=== PATIENT | male | born 1985 | race Caucasian/White ===

== ENCOUNTER 2020-07-02 17:03 | Emergency (ER) | payer OTHER, SELFPAY ==
[2020-07-02 17:38] VITALS: BP 144/105; PULSE 101; RESP 14; TEMP 36.8; O2SAT 97; BMI 34.4
--- NOTE | 2020-07-02 18:07 | W.ED.WOUNDLC ---
HPI - Wound/Laceration General: Chief Complaint: Wound/Laceration Stated Complaint: Lt hand lac Time Seen by Provider: 07/02/20 18:02 Source: patient and family (spouse) Mode of arrival: ambulatory Limitations: no limitations History of Present Illness: HPI narrative: 35-year-old male patient presents to the emergency department with left hand pain. He reports was loading metal steel beams while taking down a barn. Reports beam slipped crushing his third and fourth finger of the left hand. He also sustained lacerations. Onset (ago): minute(s) (30) Extremity Location: Left: hand Place: home Patient tetanus UTD: No Context: accidental Associated symptoms: Reports no associated symptoms; Denies chills, fever(s), nausea or vomiting Treatments prior to arrival: bandage Review of Systems General: Reports: 10 or more systems reviewed and unremarkable except in HPI and below Const: Denies: fever(s), chills or diaphoresis Eyes: Denies: blurry vision or eye redness ENMT: Denies: throat pain, dental pain or disequilibrium Card: Denies: chest pain, palpitations or irregular heart rhythm Resp: Denies: dyspnea, productive cough, non-productive cough or wheezing GI: Denies: abdominal pain, nausea or vomiting : Denies: dysuria Musc: Reports: joint pain and joint swelling; Denies: neck pain or back pain Skin/Breast: Reports: skin tenderness; Denies: rash or pruritus Neuro: Denies: headache(s), weakness in extremities or behavioral changes Psych: Denies: anxiety or depression Jay/Lymph: Denies: easy bruising Physical Exam Const: COMMON NORMALS: no acute distress, patient oriented x3, healthy appearing and alert GENERAL APPEARANCE: cooperative, well kempt, well developed and well hydrated; not comfortable NUTRITIONAL APPEARANCE: overweight ORIENTATION/CONSCIOUSNESS: Yes awake, Yes oriented to person, Yes oriented to place and Yes oriented to time HENMT: COMMON NORMALS: normocephalic, atraumatic, Normal external nose present and moist oral mucous membranes HEAD & SCALP: normal to inspection, normocephalic and atraumatic NOSE: Normal external nose present Eye: COMMON NORMALS: Equal, round and reactive pupils present and EOMs intact bilaterally GENERAL EYE: appearance normal, both eyes and all related structures PUPIL: Yes Equal, round and reactive pupils present Neck/C-Spine: COMMON NORMALS: full ROM and no lymphadenopathy GENERAL: Yes normal visual inspection and Yes trachea midline CERVICAL SPINE: Yes cervical ROM normal Lymph: LYMPHATIC: no lymphadenopathy noted Chest: COMMONS NORMALS: normal inspection of the chest Resp: COMMON NORMALS: normal respiratory effort and clear to auscultation bilaterally AUSCULTATION: clear to auscultation bilaterally Cardio: COMMON NORMALS: regular rhythm, S1 normal heart sound present, S2 normal heart sound present and Peripheral pulses 2+ throughout RHYTHM: regular rhythm HEART SOUNDS: S1 normal heart sound present and S2 normal heart sound present PERIPHERAL PULSES: Peripheral pulses 2+ throughout GI: COMMON NORMALS: Soft to palpation and non-tender INSPECTION: Yes normal to inspection PALPATION: Yes Soft to palpation : COMMON NORMALS: Yes no CVA tenderness BLADDER/KIDNEY EXAM: Yes no CVA tenderness Back/Pelvis: COMMON NORMALS: no CVA tenderness and thoracic and lumbar spine normal to inspection Extremity: COMMON NORMALS: normal to inspection, full ROM, capillary refill normal and no pedal edema GENERAL: Yes normal exam except as noted LEFT UPPER EXTREMITY: Yes hand & digits Left hand and digits: Yes inspection (edema), Yes palpation (pain to the left 3rd and 4th digit), Yes ROM (intact), Yes neurovascular exam (intact) and Yes tendon exam (intact) Neuro: COMMON NORMALS: patient oriented x3 and no focal motor deficits SENSORIUM/ORIENTATION: Yes alert, Yes oriented to person, Yes oriented to place and Yes oriented to time Psych: COMMON NORMALS: mental status grossly normal, Normal thought process present and cooperative APPEARANCE: Yes well kempt ACTIVITY/MOTOR BEHAVIOR: Yes appropriate eye contact THOUGHT PROCESS: Normal thought process present Skin: COMMON NORMALS: no rashes or lesions noted and turgor normal GENERAL SKIN EXAM: no rashes or lesions noted, elasticity normal and turgor normal TRAUMA: abrasion (4th digit, 2nd PIP with 1 cm superficial abrasion, volar side) and laceration (3rd dorsal, 2nd PIP, volar side with 2 cm laceration) linear, actively bleeding, involves subcutaneous tissue, involves muscle tissue, motor nerve function intact and sensation intact Procedures Laceration Laceration 1: Site: other (3rd left digit/hand) Side (If applicable): left Size (cm): 2 Description: linear Depth: simple, single layer Pre-repair: wound explored, irrigated extensively, deep structures intact and extensive debridement Skin layer closed with: other (Prolene) Size (cm): 5-0 Number of sutures: 2 Technique: simple, interrupted Nerve Block Nerve Block 1: Time out performed: Yes Local Anesthetic: lidocaine 1% Amount of anesthesia used (mL): 7 Side: left Nerve Blocks: digital (3rd digit, volar and dorsal) Procedure Successful: Yes Patient Tolerated Procedure: well Complications: none Nerve Block 2: Time out performed: Yes Local Anesthetic: lidocaine 1% Amount of anesthesia used (mL): 7 Nerve Blocks: digital (4th digit, dorsal and volar) Procedure Successful: Yes Patient Tolerated Procedure: well Complications: none Course Vital Signs: Vital signs: Vital Signs Temperature 98.3 F 07/02/20 19:25 Pulse Rate 86 07/02/20 19:25 Respiratory Rate 16 07/02/20 19:25 Blood Pressure 132/78 07/02/20 19:25 Pulse Oximetry 97 07/02/20 19:25 MDM - Wound/Laceration Imaging Data^: Xray Ortho: Radiologist's impression: [address] [address] XRay Report Signed Patient: Kailash Metz Unit #: [id number] : [id number] Age/Sex: 35 / M ADM Date: 07/02/20 Loc: ER Room/Bed: Attending Dr: Ordering Provider/Ordering MD: Dilma Salgado Date of Service: 07/02/20 Procedure(s): XR hand LT min 3V* [id number] Accession Number(s): [id number] Report Number: [id number] PROCEDURE INFORMATION: Exam: XR Left Hand Exam date and time: 07/02/2020 6:08 PM Age: 35 years old Clinical indication: Injury or trauma; Other: Crushing injury; Blunt trauma (contusions or hematomas) and crushing; Hand; Left; Additional info: Crush injury/laceration TECHNIQUE: Imaging protocol: XR Left hand. Views: 3 or more views. Total images: 3 COMPARISON: No relevant prior studies available. FINDINGS: Bones/joints: No visible acute osseous abnormality, fracture, subluxation, or dislocation. No radiographically visible joint effusion. Soft tissues: Soft tissues without evidence of edema, swelling, contusion, emphysema, or radiopaque foreign body. XR/XR hand LT min 3V* [id number] IMPRESSION: Nonacute. Dictated By: Bert Griffith Signed By: Bert Griffith Signed Date/Time: 07/02/201857 DD/ 56 Discharge Plan Discharge Patient Disposition: Home Clinical Impression: Laceration Crush injury to finger Qualifiers: Encounter type: initial encounter Qualified Code(s): S67.10XA - Crushing injury of unspecified finger(s), initial encounter Finger fracture, left Qualifiers: Encounter type: initial encounter Finger: middle finger Fracture type: open Phalanx: middle Fracture alignment: nondisplaced Qualified Code(s): S62.653B - Nondisplaced fracture of middle phalanx of left middle finger, initial encounter for open fracture Condition: Stable Prescriptions: New hydrocodone-acetaminophen 5-325 mg tablet 1 tab PO Q4H PRN (Reason: pain) Qty: 10 RF: 0 Augmentin 875-125 mg tablet 1 tab PO BID Qty: 14 RF: 0 Discharge Orders: Discharge ED (Routine); Ordered 07/02/20 Ordered By: Dilma Salgado Discharge Diet: Usual diet Discharge Activity: Limit activity as instructed Patient Instructions: Crush Injury, Diphtheria/Acellular Pertussis/Tetanus Booster Vaccine (Tdap) (Injection), Fractures - Phalanx (Finger), Suture Care (ED), Laceration (ED) Activity Restrictions/Additional Instructions: 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
[2020-07-02] MEDS: amoxicillin-clav 875-125 mg Tablet 1 TAB PO (19:08)
[2020-07-02] MEDS: HYDROcodone-acetaminophen 5-325 mg Tablet 1 TAB PO ×2 (19:08→19:09)
[2020-07-02] MEDS: tetanus-dipt-pertussis 0.5 mL SDV IM (19:09)
[2020-07-02 19:25] VITALS: BP 132/78; PULSE 86; RESP 16; TEMP 36.8; O2SAT 97
== END 2020-07-02 19:25 | disposition home or self-care (01) ==
PROVIDERS: Emergency Provider Nurse Practitioner Family
DX: S62.653B Nondisplaced fracture of middle phalanx of left middle finger, initial encounter for open fracture (principal); S67.10XA Crushing injury of unspecified finger(s), initial encounter; S61.213A Laceration without foreign body of left middle finger without damage to nail, initial encounter; W23.0XXA Caught, crushed, jammed, or pinched between moving objects, initial encounter; Z23 Encounter for immunization
CPT/HCPCS: 12002; 12345; 73130; 90471; 90715; 99281; 99283

== ENCOUNTER 2020-12-23 20:49 | Emergency (ER) | payer OTHER, SELFPAY ==
[2020-12-23 21:06] VITALS: BP 122/97; PULSE 91; RESP 16; TEMP 36.6; O2SAT 97; BMI 32.5
--- NOTE | 2020-12-23 21:26 | XRR_ITS ---
PROCEDURE INFORMATION: Exam: XR Chest Exam date and time: 12/23/2020 9:26 PM Age: 35 years old Clinical indication: Dyspnea; Additional info: Reduced breath sounds. Covid SX TECHNIQUE: Imaging protocol: XR of the chest. Views: 1 view. COMPARISON: No relevant prior studies available. FINDINGS: Lungs: Unremarkable. No consolidation. Pleural spaces: Unremarkable. No pleural effusion. No pneumothorax. Heart/Mediastinum: Unremarkable. No cardiomegaly. Bones/joints: Unremarkable. XR/XR chest 1V portable [id number] IMPRESSION: No acute findings.
[2020-12-23] MEDS: ondansetron 2 mg/ML SDV 2 mL 4 MG IVP (21:40)
[2020-12-23] MEDS: acetaminophen 325 mg Tablet 650 MG PO (21:41)
--- NOTE | 2020-12-23 21:56 | W.ED.COVID ---
HPI - COVID General: Chief Complaint: COVID symptoms Stated Complaint: very ill Time Seen by Provider: 12/23/20 21:20 Triage information: No fever, cough or shortness of breath. Exposure to COVID + person last 14 days History of Present Illness: HPI Narrative: The patient is a 35-year-old male who comes to the ER complaining that he is intoxicated and was nauseous and vomiting and feeling unsteady on his feet. He says he was exposed to Covid a few days ago as well. He states he has mild confusion but thinks he is just very drunk. He came from the [employer] and has been drinking heavily. Denies fever. He says occasionally has chest pain he is worried about COVID 19 common symptoms: positive nausea and vomiting; negative productive cough, dyspnea, fatigue, headache(s), throat pain or nasal congestion COVID 19 other sytmptoms: negative chest pain or confusion Treatment prior to arrival: none COVID Results: SARS-CoV-2 Antigen (Rapid) Negative (Negative) 12/23/20 23:00 12/23/20 Review of Systems General: Reports: 10 or more systems reviewed and unremarkable except in HPI and below Const: Denies: fatigue Eyes: Denies: change in vision, blurry vision or eye redness ENMT: Denies: throat pain, swelling of lips/tongue, ear or mastoid pain or nasal congestion Card: Denies: chest pain, palpitations, irregular heart rhythm, edema, dyspnea on exertion or orthopnea Resp: Denies: dyspnea or productive cough GI: Reports: nausea and vomiting : Denies: flank pain, urinary frequency or urinary urgency Musc: Denies: neck pain, back pain, extremity pain, joint pain, joint redness, limited range of motion or muscle weakness Skin/Breast: Denies: rash, pruritus, erythema, skin pain or skin tenderness Neuro: Denies: headache(s), numbness in extremities, weakness in extremities, sensory changes, difficulty walking, dizziness, confusion or Slurred speech present Psych: Denies: anxiety or depression Endo: Denies: polyuria All/Imm: Denies: urticaria, throat swelling or tongue swelling Physical Exam Narrative: EXAM NARRATIVE: Intoxicated. Smells of alcohol. Const: COMMON NORMALS: no acute distress, average body habitus, patient oriented x3, no limitations, healthy appearing, alert and well nourished GENERAL APPEARANCE: cooperative, comfortable, well kempt and well developed ORIENTATION/CONSCIOUSNESS: Yes awake, Yes oriented to person, Yes oriented to place and Yes oriented to time HENMT: COMMON NORMALS: normocephalic, external ears normal and Normal external nose present HEAD & SCALP: normal to inspection and normocephalic NOSE: Normal external nose present EXTERNAL EAR: Yes external ears normal MOUTH: Normal oral and palatal mucosa present THROAT: posterior oropharynx normal Eye: COMMON NORMALS: Equal, round and reactive pupils present and EOMs intact bilaterally GENERAL EYE: appearance normal, both eyes and all related structures PUPIL: Yes Equal, round and reactive pupils present Neck/C-Spine: COMMON NORMALS: full ROM, no lymphadenopathy, no meningeal signs and no JVD GENERAL: Yes normal visual inspection Lymph: LYMPHATIC: no lymphadenopathy noted Chest: COMMONS NORMALS: normal inspection of the chest and normal palpation of entire chest wall Resp: COMMON NORMALS: normal respiratory effort, No retractions, No use of accessory muscles, clear to auscultation bilaterally and percussion normal EFFORT & INSPECTION: Yes able to speak in complete sentences AUSCULTATION: clear to auscultation bilaterally PERCUSSION: percussion normal Cardio: COMMON NORMALS: no JVD, regular rate, regular rhythm, S1 normal heart sound present, S2 normal heart sound present and Peripheral pulses 2+ throughout RATE: regular rate RHYTHM: regular rhythm HEART SOUNDS: S1 normal heart sound present and S2 normal heart sound present PERIPHERAL PULSES: Peripheral pulses 2+ throughout GI: COMMON NORMALS: Normal to inspection, nondistended, normoactive bowel sounds present, Soft to palpation, non-tender and no masses INSPECTION: Yes normal to inspection PALPATION: Yes Soft to palpation : COMMON NORMALS: Yes no CVA tenderness BLADDER/KIDNEY EXAM: Yes no CVA tenderness Back/Pelvis: COMMON NORMALS: no CVA tenderness, thoracic and lumbar spine normal to inspection, no thoracic nor lumbar tenderness and thoraco-lumbar ROM normal Extremity: COMMON NORMALS: normal to inspection, full ROM, capillary refill normal, no joint enlargement and no pedal edema GENERAL: Yes normal exam except as noted Neuro: COMMON NORMALS: patient oriented x3, CN's II-XII intact bilaterally, moves all extremities, no focal motor deficits, no sensory deficits noted and gait normal SENSORIUM/ORIENTATION: Yes alert, Yes oriented to person, Yes oriented to place and Yes oriented to time MENINGEAL SIGNS: Yes no meningeal signs Psych: COMMON NORMALS: mental status grossly normal, Normal thought process present, cooperative, normal affect and speech normal APPEARANCE: Yes well kempt ATTITUDE: Yes calm SPEECH: Yes normal speech THOUGHT PROCESS: Normal thought process present Skin: COMMON NORMALS: no rashes or lesions noted GENERAL SKIN EXAM: no rashes or lesions noted Course Vital Signs: Vital signs: Vital Signs Temperature 97.8 F 12/23/20 21:06 Pulse Rate 91 12/23/20 21:06 Respiratory Rate 16 12/23/20 21:06 Blood Pressure 122/97 12/23/20 21:06 Pulse Oximetry 97 12/23/20 21:06 MDM - COVID MDM Narrative: Medical decision making narrative: Patient comes to the ER with multiple complaints nausea, lack of coordination and balance. Likely attributable to his alcohol intoxication. EtOH level 181 with mild bump in liver enzymes. Covid test negative. EKG normal and troponin normal. Stable for discharge. Discussed cutting back on alcohol with him. ER with worsening symptoms at any time. PCP next week for recheck Lab Data: Labs: Lab Results 12/23/20 12/23/20 12/23/20 Range/Units 22:00 22:00 22:00 WBC 7.2 (4.0-10.0) 10^3/ uL RBC 5.08 (4.1-5.3) 10^6/u L Hgb 16.3 (11.7-16.6) g/dL Hct 48.7 (42.0-52.0) % MCV 95.9 H (80-94) fL MCH 32.1 (28.0-34.0) pg MCHC 33.5 (30.0-36.0) g/dL RDW 13.2 (12.1-15.1) % Plt Count 260 (130-400) 10^3/c mm MPV 10.4 (7.4-10.4) fL Neut % (Auto) 54.4 % Lymph % (Auto) 31.9 % [place] % (Auto) 7.2 % Eos % (Auto) 5.0 % Baso % (Auto) 1.1 % Neut # (Auto) 3.92 (1.8-7.7) 10^3/u L Lymph # (Auto) 2.3 (0.8-4.8) 10^3/u L [place] # (Auto) 0.5 (0.2-0.9) 10^3/u L Eos # (Auto) 0.4 (0.0-0.8) 10^3/u L Baso # (Auto) 0.1 (0.0-0.1) 10^3/u L Nucleated RBC % (a uto) 0 % Nucleated RBCs # 0.0 /100WBC Sodium 143 (136-145) mmol/L Potassium 4.3 (3.5-5.1) mmol/L Chloride 107 (98-107) mmol/L Carbon Dioxide 25 (22-29) mmol/L Anion Gap 15.3 (5-19) BUN 10 (6-20) mg/dL Creatinine 1.3 H (0.7-1.2) mg/dL GFR Calculation 62.1 L (90-130) mL/min Glucose 111 (65-115) mg/dL Calculated Osmolal ity 296 H (285-295) mOsm/k g Calcium 9.2 (8.5-10.5) mg/dL Total Bilirubin 0.3 (0.15-1.2) mg/dL AST 92 H (0-40) U/L ALT 136 H (0-41) U/L Alkaline Phosphata se 100 (40-130) IU/L Troponin T Baselin e 6 (0-15) ng/L Total Protein 7.2 (6.6-8.7) g/dL Albumin 4.5 (3.5-5.2) g/dL Globulin 2.7 (1.3-4.6) g/dL Urine Color (Yellow) Urine Appearance (CLEAR) Urine pH (5-7) Ur Specific Gravit y (1.005-1.030) Urine Protein (Negative) Urine Glucose (UA) (Normal) Urine Ketones (Negative) Urine Blood (Negative) Urine Nitrate (Negative) Urine Bilirubin (Negative) Urine Urobilinogen (Negative) mg/dL Ur Leukocyte Cristiane ase (Negative) Urine Opiates Scre en (Negative) ng/mL Ur Barbiturates Sc reen (Negative) ng/mL Ur Phencyclidine S crn (Negative) ng/mL Ur Amphetamines Sc reen (Negative) ng/mL U Benzodiazepines Scrn (Negative) ng/mL Urine Cocaine Scre en (Negative) ng/mL U Marijuana (THC) Screen (Negative) ng/mL Ethyl Alcohol 181 H (0-10) mg/dL SARS-CoV-2 Ag (Rap id) (Negative) 12/23/20 12/23/20 12/23/20 Range/Units 22:20 22:20 23:00 WBC (4.0-10.0) 10^3/ uL RBC (4.1-5.3) 10^6/u L Hgb (11.7-16.6) g/dL Hct (42.0-52.0) % MCV (80-94) fL MCH (28.0-34.0) pg MCHC (30.0-36.0) g/dL RDW (12.1-15.1) % Plt Count (130-400) 10^3/c mm MPV (7.4-10.4) fL Neut % (Auto) % Lymph % (Auto) % [place] % (Auto) % Eos % (Auto) % Baso % (Auto) % Neut # (Auto) (1.8-7.7) 10^3/u L Lymph # (Auto) (0.8-4.8) 10^3/u L [place] # (Auto) (0.2-0.9) 10^3/u L Eos # (Auto) (0.0-0.8) 10^3/u L Baso # (Auto) (0.0-0.1) 10^3/u L Nucleated RBC % (a uto) % Nucleated RBCs # /100WBC Sodium (136-145) mmol/L Potassium (3.5-5.1) mmol/L Chloride (98-107) mmol/L Carbon Dioxide (22-29) mmol/L Anion Gap (5-19) BUN (6-20) mg/dL Creatinine (0.7-1.2) mg/dL GFR Calculation (90-130) mL/min Glucose (65-115) mg/dL Calculated Osmolal ity (285-295) mOsm/k g Calcium (8.5-10.5) mg/dL Total Bilirubin (0.15-1.2) mg/dL AST (0-40) U/L ALT (0-41) U/L Alkaline Phosphata se (40-130) IU/L Troponin T Baselin e (0-15) ng/L Total Protein (6.6-8.7) g/dL Albumin (3.5-5.2) g/dL Globulin (1.3-4.6) g/dL Urine Color Yellow (Yellow) Urine Appearance Clear (CLEAR) Urine pH 5 (5-7) Ur Specific Gravit y 1.015 (1.005-1.030) Urine Protein Neg (Negative) Urine Glucose (UA) Norm (Normal) Urine Ketones 1+ H (Negative) Urine Blood Neg (Negative) Urine Nitrate Negative (Negative) Urine Bilirubin Neg (Negative) Urine Urobilinogen 1 H (Negative) mg/dL Ur Leukocyte Cristiane ase Negative (Negative) Urine Opiates Scre en Negative (Negative) ng/mL Ur Barbiturates Sc reen Negative (Negative) ng/mL Ur Phencyclidine S crn Negative (Negative) ng/mL Ur Amphetamines Sc reen Negative (Negative) ng/mL U Benzodiazepines Scrn Negative (Negative) ng/mL Urine Cocaine Scre en Negative (Negative) ng/mL U Marijuana (THC) Screen Negative (Negative) ng/mL Ethyl Alcohol (0-10) mg/dL SARS-CoV-2 Ag (Rap id) Negative (Negative) COVID Results: SARS-CoV-2 Antigen (Rapid) Negative (Negative) 12/23/20 23:00 12/23/20 Discharge Plan Discharge Patient Disposition: Home Clinical Impression: Alcohol intoxication Condition: Stable Prescriptions: No Action hydrocodone-acetaminophen 5-325 mg tablet 1 tab PO Q4H PRN (Reason: pain) Qty: 10 RF: 0 Augmentin 875-125 mg tablet 1 tab PO BID Qty: 14 RF: 0 Discharge Orders: Discharge ED (Routine); Ordered 12/24/20 Ordered By: Obi Germain Discharge Diet: Advance as tolerated Discharge Activity: Resume usual activity Patient Instructions: Abuse of Alcohol (ED), Opioid Safety Activity Restrictions/Additional Instructions: You are intoxicated on alcohol. Please cut back in the future. Return to the ER with worsening symptoms. Follow-up with primary care provider next week for a checkup. 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
[2020-12-23 22:13] LABS: Basophils # 0.1 10^3/uL (0.0-0.1); Basophils % 1.1 %; Eosinophils # 0.4 10^3/uL (0.0-0.8); Hematocrit 48.7 % (42.0-52.0); Hemoglobin 16.3 g/dL (11.7-16.6); Lymphocytes # 2.3 10^3/uL (0.8-4.8); Lymphocytes % 31.9 %; Mean Corpuscular HGB Conc 33.5 g/dL (30.0-36.0); Mean Corpuscular Hemoglobin 32.1 pg (28.0-34.0); Mean Corpuscular Volume 95.9 fL (80-94); Mean Platelet Volume 10.4 fL (7.4-10.4); Monocytes # 0.5 10^3/uL (0.2-0.9); Monocytes % 7.2 %; Neutrophils # 3.92 10^3/uL (1.8-7.7); Neutrophils % 54.4 %; Nucleated Red Blood Cells % 0 %; Platelet Count 260 10^3/cmm (130-400); Red Blood Count 5.08 10^6/uL (4.1-5.3); Red Cell Distribution Width 13.2 % (12.1-15.1); White Blood Count 7.2 10^3/uL (4.0-10.0)
[2020-12-23] MEDS: sodium chloride 0.9% 1,000 ML 999 ML IV (22:25)
[2020-12-23 22:30] LABS: Troponin(5th) Baseline 6 ng/L (0-15)
[2020-12-23 22:31] LABS: Alanine Aminotransferase 136 U/L (0-41); Albumin Level 4.5 g/dL (3.5-5.2); Alcohol Level 181 mg/dL (0-10); Alkaline Phosphatase 100 IU/L (40-130); Anion Gap 15.3 (5-19); Aspartate Amino Transferase 92 U/L (0-40); Blood Urea Nitrogen 10 mg/dL (6-20); Calcium 9.2 mg/dL (8.5-10.5); Carbon Dioxide 25 mmol/L (22-29); Chloride 107 mmol/L (98-107); Globulin 2.7 g/dL (1.3-4.6); Glomerular Filtration Rate 62.1 mL/min (90-130); Glucose 111 mg/dL (65-115); Osmolality Calculated 296 mOsm/kg (285-295); Potassium 4.3 mmol/L (3.5-5.1); Sodium 143 mmol/L (136-145); Total Bilirubin 0.3 mg/dL (0.15-1.2); Total Protein 7.2 g/dL (6.6-8.7)
[2020-12-23 23:06] LABS: Add Urine Microscopic? NO; Charge for UA Resulting for Rev
[2020-12-23 23:10] LABS: Bilirubin Urine Neg (Negative); Blood Urine Neg (Negative); Glucose Urine UA Norm (Normal); Ketones Urine 1+ (Negative); Leukocyte Esterase Urine Negative (Negative); Nitrate Urine Negative (Negative); Protein Urine Neg (Negative); Specific Gravity, Urine 1.015 (1.005-1.030); Urine Appearance Clear (CLEAR); Urine Color Yellow (Yellow); Urobilinogen Urine 1 mg/dL (Negative); pH Urine 5 (5-7)
[2020-12-23 23:25] LABS: SARS Covid-2 Antigen Negative (Negative)
[2020-12-23 23:55] LABS: Amphetamines Screen Urine Negative (Negative); Barbiturates Screen Urine Negative (Negative); Benzodiazepines Screen Urine Negative (Negative); Cocaine Screen Urine Negative (Negative); Opiate Screen Urine Negative (Negative); PCP Screen Urine Negative (Negative); THC Screen Urine Negative (Negative)
[2020-12-24 01:19] VITALS: O2SAT 98
== END 2020-12-24 00:27 | disposition home or self-care (01) ==
PROVIDERS: Emergency Provider Family Medicine
DX: F10.129 Alcohol abuse with intoxication, unspecified (principal); Y90.6 Blood alcohol level of 120-199 mg/100 ml; Z20.822 Contact with and (suspected) exposure to COVID-19
CPT/HCPCS: 71045; 80053; 80306; 80307; 81003; 84484; 85025; 87426; 96361; 96374; 99283; J2405; J7030

== ENCOUNTER 2022-05-07 11:08 | Emergency (ER) | payer BC, SELFPAY ==
[2022-05-07 11:15] VITALS: BP 163/118; PULSE 91; RESP 16; TEMP 36.7; O2SAT 98
--- NOTE | 2022-05-07 11:19 | XR_ITS ---
WS: [id number] Exam: XR foot LT min 3V* [id number] Date/Time of Exam: 05/07/2022 11:21 AM Reason For Exam: pain and swelling No fracture or dislocation noted. No radiopaque soft tissue foreign bodies. Slight DJD at the first M P joint. XR/XR foot LT min 3V* [id number] IMPRESSION: 1. No acute fracture or other significant finding.
--- NOTE | 2022-05-07 11:58 | ED_ITS ---
HPI - Extremity Problem General: Chief complaint: Extremity Injury, Lower Stated complaint: left foot injury Time Seen by Provider: 05/07/22 11:25 History of Present Illness: Patient is a 37-year-old male comes to the ED with left foot pain. Pain started yesterday after he was walking and stepped off the side of the concrete ledge causing him to roll his left foot. He is now having 7 out of 10 pain to lateral midfoot. Pain worsens with ambulation. Associated symptoms: Deny chest pain, fever(s) or rash Review of Systems Const: Denies: fever(s), chills or fatigue Eyes: Denies: change in vision or eye discomfort ENMT: Denies: throat pain, odynophagia, nasal discharge or nasal congestion Card: Denies: chest pain, palpitations, edema, swelling of feet/ankles, dyspnea on exertion or orthopnea Resp: Denies: dyspnea, productive cough or non-productive cough GI: Denies: abdominal pain, nausea, vomiting, diarrhea, constipation or hematochezia : Denies: flank pain, difficulty urinating, dysuria or hematuria Musc: Reports: extremity pain (left foot pain) and extremity swelling (left foot); Denies: neck pain or back pain Skin/Breast: Denies: rash or new lesions Neuro: Denies: headache(s), numbness in extremities or weakness in extremities [facility] ED PFSH: Medical History No pertinent family history Surgical History No pertinent past surgical history Physical Exam Const: COMMON NORMALS: no acute distress, patient oriented x3, healthy appearing and alert HENMT: COMMON NORMALS: normocephalic HEAD & SCALP: normocephalic MOUTH: Normal oral and palatal mucosa present THROAT: posterior oropharynx normal and uvula midline Neck/C-Spine: COMMON NORMALS: supple GENERAL: Yes normal visual inspection Resp: COMMON NORMALS: normal respiratory effort, No retractions, No use of accessory muscles and clear to auscultation bilaterally AUSCULTATION: clear to auscultation bilaterally Cardio: COMMON NORMALS: regular rate, regular rhythm, S1 normal heart sound present, S2 normal heart sound present, No gallops present (Cardio), No clicks present (Cardio), No murmurs present (Cardio) and Peripheral pulses 2+ throughout RATE: regular rate RHYTHM: regular rhythm HEART SOUNDS: S1 normal heart sound present and S2 normal heart sound present PERIPHERAL PULSES: Peripheral pulses 2+ throughout GI: COMMON NORMALS: Normal to inspection, nondistended, normoactive bowel sounds present, Soft to palpation, non-tender and no masses PALPATION: Yes Soft to palpation : COMMON NORMALS: Yes no CVA tenderness BLADDER/KIDNEY EXAM: Yes no CVA tenderness Back/Pelvis: COMMON NORMALS: no CVA tenderness Extremity: COMMON NORMALS: full ROM and capillary refill normal NARRATIVE EXTREMITY EXAM: Left foot?tenderness to mid lateral foot along with some mild swelling. No deformity noted. Neuro: COMMON NORMALS: patient oriented x3 SENSORIUM/ORIENTATION: Yes alert GAIT: Yes Normal gait present Skin: GENERAL SKIN EXAM: dry skin Course Vital Signs: Vital signs: Vital Signs Temperature 98.0 F 05/07/22 11:15 Pulse Rate 91 05/07/22 11:15 Respiratory Rate 16 05/07/22 11:15 Blood Pressure 163/118 05/07/22 11:15 Pulse Oximetry 98 05/07/22 11:15 Oxygen Delivery Me thod 05/07/22 11:15 MDM - Extremity (Nontraumatic) Medical Decision Making Patient is a 37-year-old male comes to the ED with left foot pain. Patient stepped on edge of concrete causing him to roll his foot. Vitals are stable. Left foot?tenderness to mid lateral foot along with some mild swelling. No deformity noted. X-ray of left foot shows no acute fractures or findings. Patient diagnosed with left foot sprain and was discharged home with some crutches and an ibuprofen 800 mg prescription and told to follow-up with PCP within the next week for reevaluation. Return to ED precautions given. Patient understood and agreed with plan. Lab Data Radiology Impressions Foot X-Ray 05/07/22 11:19 IMPRESSION: 1. No acute fracture or other significant finding. Discharge Plan Discharge Patient Disposition: Home Clinical Impression: Sprain of foot, left Qualifiers: Encounter type: initial encounter Qualified Code(s): S93.602A - Unspecified sprain of left foot, initial encounter Condition: Stable Prescriptions: New ibuprofen 800 mg tablet 800 mg PO Q8H PRN (Reason: pain) Qty: 30 0RF No Action hydrocodone-acetaminophen 5-325 mg tablet 1 tab PO Q4H PRN (Reason: pain) Qty: 10 0RF Rx Instructions: take 1 PO every 4 hours PRN pain Augmentin 875-125 mg tablet 1 tab PO BID Qty: 14 0RF Rx Instructions: Take 1 p.o. twice daily to prevent infection, take until all gone, even if better Discharge Orders: Discharge ED (Routine); Ordered 05/07/22 Ordered By: Anibal Jackson Discharge Diet: Regular Discharge Activity: Increase activity as tolerated and Use walker/crutches as instructed Patient Instructions: Foot Sprain (ED) Activity Restrictions/Additional Instructions: Follow-up with medical provider as directed in the next 5 to 7 days for reevaluation. Rest, ice and elevate left foot. Use crutches for ambulation and limit weightbearing for the next 2 to 3 days and slowly advance weightbearing as tolerated. Take medications as prescribed. Return to the ER or your medical provider if condition worsens. Please read and understand discharge instructions. Thank you for choosing [facility] for your healthcare needs today. Please realize this is an emergency room and that we are providing you with a medical screening exam and this may not be complete and all inclusive of all the testing and or work up that you may need to determine your ailment or severity of your illness. It is very important that you follow up as instructed or that you return to the Emergency Department should you have concerns or if your condition changes or worsens in any way. Stand Alone Forms: Work/School Release Coding Level of Care Code ED U[employer] for [employer] Exam Comprehensive
[2022-05-07] MEDS: ketorolac 60 mg/2 mL INJ IM (12:11)
== END 2022-05-07 12:17 | disposition home or self-care (01) ==
PROVIDERS: Emergency Provider Physician Assistant
DX: S93.602A Unspecified sprain of left foot, initial encounter (principal); X50.1XXA Overexertion from prolonged static or awkward postures, initial encounter
CPT/HCPCS: 73630; 96372; 99284; E0114; J1885